=== PATIENT | male | born 1960 | race Caucasian/White ===

== ENCOUNTER 2021-02-16 07:30 | Outpatient (CLI) | payer BC | END 2021-02-16 07:31 | disposition home or self-care (01) | LOC: CSHCT 07:30 | PROVIDERS: ATTEND Internal Medicine Cardiovascular Disease | DX: I71.9 Aortic aneurysm of unspecified site, without rupture (principal); K76.89 Other specified diseases of liver; N28.1 Cyst of kidney, acquired | CPT/HCPCS: 71275 ==

== ENCOUNTER 2022-01-31 12:20 | Outpatient (CLI) | payer BC ==
[~2022-01-31 12:20] MED LIST: Iopamidol 370 76% 100 ML VIAL ONE
[2022-01-31 13:18] LABS: Estimated GFR-MDRD - POC Greater than 90
== END 2022-01-31 12:21 | disposition home or self-care (01) ==
LOC: CSHCT 12:20
PROVIDERS: ATTEND Internal Medicine Cardiovascular Disease
DX: I71.9 Aortic aneurysm of unspecified site, without rupture (principal)
CPT/HCPCS: 71275; 82565